=== PATIENT | male | born 1970 | race Caucasian/White ===

== ENCOUNTER → 2019-07-01 | Outpatient (CLI) | payer OTHER | LOC: M.ULTRA 07:51 | DX: R22.1 Localized swelling, mass and lump, neck (principal) ==

== ENCOUNTER 2019-08-29 17:37 | Emergency (ER) | payer OTHER ==
[~2019-08-29] VITALS: Ht 177.8 cm; Wt 95.3 kg
[2019-08-29] MEDS ORDERED: NOHOMEMEDICATIONS (18:02)
[2019-08-29] MEDS ORDERED: FLEXERIL PO (19:14)
[2019-08-29] MEDS ORDERED: NAPROSYN500 M1 PO (19:14)
[2019-08-29 19:20] VITALS: BP 144/69
== END 2019-08-29 19:21 | disposition home or self-care (01) ==
LOC: M.ERS 17:37
DX: M54.5 Low back pain (principal); R51 Headache; M54.2 Cervicalgia; R03.0 Elevated blood-pressure reading, without diagnosis of hypertension; V89.2XXA Person injured in unspecified motor-vehicle accident, traffic, initial encounter; Y93.89 Activity, other specified; Y92.89 Other specified places as the place of occurrence of the external cause; Y99.8 Other external cause status